=== PATIENT | female | born 1965 | race Caucasian/White ===

== ENCOUNTER 2017-09-14 14:22 | Emergency (ER) | payer OTHER ==
[~2017-09-14] VITALS: Ht 162.6 cm; Wt 90.7 kg
[2017-09-14 14:24] VITALS: BP 127/81
[2017-09-14] MEDS ORDERED: METHOCARBAMOL 750 MG TABLET PO ONE (15:00)
[2017-09-14] MEDS ORDERED: METHOCARBAMOL 750 MG TABLET ONE (15:13)
== END 2017-09-14 16:40 | disposition home or self-care (01) ==
LOC: ED 16:21
DX: S50.01XA Contusion of right elbow, initial encounter (principal); S80.01XA Contusion of right knee, initial encounter; Z90.49 Acquired absence of other specified parts of digestive tract; Z90.710 Acquired absence of both cervix and uterus; W01.0XXA Fall on same level from slipping, tripping and stumbling without subsequent striking against object, initial encounter; Y93.89 Activity, other specified; Y92.89 Other specified places as the place of occurrence of the external cause; Y99.8 Other external cause status
CPT/HCPCS: 29505; 72110; 99284